=== PATIENT | male | born 1990 | race American Indian/Alaskan Native ===

== ENCOUNTER 2020-06-10 23:47 | Emergency (ER) | payer OTHER ==
[2020-06-11] MEDS ORDERED: ACETAMINOPHEN 325 MG TAB ONE (01:43)
[2020-06-11] MEDS ORDERED: ACETAMINOPHEN 325 MG TAB PO ONE (02:00)
[2020-06-11 02:10] VITALS: BP 124/83
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
[2020-06-11] MEDS ORDERED: IBUPROFEN 600 MG TAB PO ONE (04:45)
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
== END 2020-06-11 05:08 | disposition home or self-care (01) ==
LOC: ED 23:47
DX: S39.012A Strain of muscle, fascia and tendon of lower back, initial encounter (principal); S16.1XXA Strain of muscle, fascia and tendon at neck level, initial encounter; S50.02XA Contusion of left elbow, initial encounter; J45.909 Unspecified asthma, uncomplicated; V89.2XXA Person injured in unspecified motor-vehicle accident, traffic, initial encounter; Y93.89 Activity, other specified; Y92.410 Unspecified street and highway as the place of occurrence of the external cause; Y99.8 Other external cause status
CPT/HCPCS: 72040; 72100; 99283